=== PATIENT | female | born 1995 | race Hispanic/Latino ===

== ENCOUNTER 2021-05-28 18:41 | Emergency (ER) | payer OTHER ==
[~2021-05-28] VITALS: Ht 170.2 cm; Wt 79.4 kg
[2021-05-28] MEDS ORDERED: VALACYCLOVIR500 MG PO (19:10)
[2021-05-28] MEDS ORDERED: PREDNISONE10 MG PO (19:17)
[2021-05-28] MEDS ORDERED: VISINE DRY EYE15 ML OP (19:17)
[2021-05-28] MEDS ORDERED: MOTRIN200 MG PO (19:25)
[2021-05-28] MEDS ORDERED: NEURONTIN100 MG PO (19:26)
== END 2021-05-28 20:00 | disposition home or self-care (01) ==
LOC: ER 19:40
DX: G51.0 Bell's palsy (principal)
CPT/HCPCS: 99282